=== PATIENT | female | born 1970 | race African-American/Black ===

== ENCOUNTER 2018-07-20 19:41 | Emergency (ER) | payer SELFPAY ==
[~2018-07-20] VITALS: Ht 172.7 cm; Wt 90.7 kg
[2018-07-20] MEDS ORDERED: UNABLE MC (20:45)
[2018-07-20] MEDS ORDERED: LABETALOL 20 MG/4 ML DISP.SYRIN. IVP ONE (21:00)
[2018-07-20 21:14] LABS: BASO # 0.1 x10^3/uL (0.0-0.2); BASO % 1 % (0-3); EOS # 0.3 x10^3/uL (0.0-0.7); EOS % 5 % (0-3); HEMATOCRIT 40.5 % (36.0-47.0); LYMPH # 1.4 x10^3/uL (1.0-4.8); LYMPH % 22 % (24-48); MEAN CORPUSCULAR HEMOGLOBIN 34 pg (25-35); MEAN CORPUSCULAR HGB CONC 34 g/dL (31-37); MEAN CORPUSCULAR VOLUME 100 fL (79-100); MONO # 0.6 x10^3/uL (0.0-1.1); MONO % 9 % (0-9); NEUT # 3.9 x10^3uL (1.8-7.7); NEUT % 63 % (31-73); PLATELET COUNT 367 x10^3/uL (140-400); RED BLOOD COUNT 4.07 x10^6/uL (3.50-5.40); RED CELL DISTRIBUTION WIDTH 14.1 % (11.5-14.5); WHITE BLOOD COUNT 6.2 x10^3/uL (4.0-11.0)
--- NOTE | 2018-07-20 21:23 | PHYS DOC ---
Past Medical History Past Medical History: A-Fib, Hypertension, Other Additional Past Medical Histor: back pain Past Surgical History: Other Additional Past Surgical Histo: unable to recall Alcohol Use: None Drug Use: None Adult General Chief Complaint Chief Complaint: TOE PROBLEM HPI HPI Patient is a 47 year old female with a history of high blood pressure presents to the ED complaining of rash to bilateral feet 1 week. 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 States she has to wear her shoes a lot and her feet sweat. Patient has tried [id number] creams without any improvement. Patient's blood pressure is also noted to be elevated in the ED. Patient has not been taking her blood pressure medication for the last couple of months. States she lost her insurance and has not filled her medications due to no insurance. Denies headache, vision changes, chest pain, shortness of breath, nausea/vomiting, dizziness, weakness, paresthesias, neck pain, nausea/vomiting or fever. Review of Systems Review of Systems Constitutional: Denies fever or chills [] Eyes: Denies change in visual acuity, redness, or eye pain [] HENT: Denies nasal congestion or sore throat [] Respiratory: Denies cough or shortness of breath [] Cardiovascular: No additional information not addressed in HPI [] GI: Denies abdominal pain, nausea, vomiting, bloody stools or diarrhea [] : Denies dysuria or hematuria [] Musculoskeletal: Denies back pain or joint pain [] Integument: Complains of rash to feet. Denies skin lesions [] Neurologic: Denies headache, focal weakness or sensory changes [] All other systems were reviewed and found to be within normal limits, except as documented in this note. Current Medications Current Medications Current Medications Medications (Trade) Dose Ordered Sig/Erinn Start Time Stop Time Status Last Admin Dose Admin Labetalol HCl (Normodyne Iv Push) 20 mg 1X ONCE 07/20/18 21:00 07/20/18 21:01 DC 07/20/18 21:35 20 MG Allergies Allergies Allergies Coded Allergies Type Severity Reaction Last Updated Verified No Known Drug Allergies 07/20/18 No Physical Exam Physical Exam Constitutional: Well developed, well nourished, no acute distress, non-toxic appearance. [] HENT: Normocephalic, atraumatic Eyes: PERRLA, EOMI, conjunctiva normal, no discharge. [] Neck: Normal range of motion, no tenderness, supple, no stridor. [] Cardiovascular:Heart rate regular rhythm, no murmur [] Lungs & Thorax: Bilateral breath sounds clear to auscultation [] Abdomen: Bowel sounds normal, soft, no tenderness, no masses, no pulsatile masses. [] Skin: Warm, dry. Erythematous, scaly rash to bilateral soles of feet consistent with tinea pedis. Back: No tenderness, no CVA tenderness. [] Extremities: No tenderness, no cyanosis, no clubbing, ROM intact, no edema. [] Neurologic: Alert and oriented X 3, normal motor function, normal sensory function, no focal deficits noted. [] Psychologic: Affect normal, judgement normal, mood normal. [] Current Patient Data Vital Signs Vital Signs Date Time Temp Pulse Resp B/P (MAP) Pulse Ox O2 Delivery O2 Flow Rate FiO2 07/20/18 23:00 79 18 177/97 (123) 99 Room Air 07/20/18 20:40 98.7 98.7 Lab Values Laboratory Tests Test 07/20/18 21:05 07/20/18 21:23 White Blood Count 6.2 x10^3/uL (4.0-11.0) Red Blood Count 4.07 x10^6/uL (3.50-5.40) Hemoglobin 14.0 g/dL (12.0-15.5) Hematocrit 40.5 % (36.0-47.0) Mean Corpuscular Volume 100 fL (79-100) Mean Corpuscular Hemoglobin 34 pg (25-35) Mean Corpuscular Hemoglobin Concent 34 g/dL (31-37) Red Cell Distribution Width 14.1 % (11.5-14.5) Platelet Count 367 x10^3/uL (140-400) Neutrophils (%) (Auto) 63 % (31-73) Lymphocytes (%) (Auto) 22 % (24-48) L Monocytes (%) (Auto) 9 % (0-9) Eosinophils (%) (Auto) 5 % (0-3) H Basophils (%) (Auto) 1 % (0-3) Neutrophils # (Auto) 3.9 x10^3uL (1.8-7.7) Lymphocytes # (Auto) 1.4 x10^3/uL (1.0-4.8) Monocytes # (Auto) 0.6 x10^3/uL (0.0-1.1) Eosinophils # (Auto) 0.3 x10^3/uL (0.0-0.7) Basophils # (Auto) 0.1 x10^3/uL (0.0-0.2) POC Hemoglobin 15.0 g/dL (12-15) POC Hematocrit 44 % (36-40) H POC Sodium 137 mmol/L (135-145) POC Potassium 3.9 mmol/L (3.5-5.0) POC Chloride 98 mmol/L (98-110) POC Total CO2 28 mmol/L (23-32) Anion Gap 16 mmol/L (6-14) H POC Blood Urea Nitrogen 15 mg/dL (8-26) POC Creatinine 0.8 mg/dL (0.5-1.4) Glucose Level 97 mg/dL (70-99) POC Ionized Calcium ([place]) 1.20 mmol/L (1.13-1.32) Laboratory Tests 07/20/18 21:05 Laboratory Tests 07/20/18 21:23 EKG EKG [] Radiology/Procedures Radiology/Procedures [] Course & Med Decision Making Course & Med Decision Making Pertinent Labs and Imaging studies reviewed. (See chart for details) Will treat for tinea pedis outpatient. Patient also provided otc options ( desenex). []Discussed lab findings with patient. Creatinine WNL. Patient's blood pressure improved in the ED to 171/95 with medication. Patient continues to be asymptomatic. States she feels well. Requesting prescription for her at home medications (carvedilol and xarelto;given starter pack). Patient has been given contact information for free clinic list. States she is going to follow-up tomorrow. States she has a few resource options. Discussed the importance of follow-up and risks if she does not including , disability and complications. Discussed reasons to return to the ED. Patient understands and agrees with plan. Dragon Disclaimer Dragon Disclaimer This electronic medical record was generated, in whole or in part, using a voice recognition dictation system. Departure Departure Impression: Primary Impression: Athletes foot Additional Impression: Asymptomatic hypertension Disposition: HOME, SELF-CARE Condition: IMPROVED Referrals: NO PCP (PCP) QUE BROOKE MD Patient Instructions: Athlete's Foot, Hypertension Scripts Ketoconazole (KETOCONAZOLE) 15 Gm Cream..g. 1 HUGO TP BID for 14 Days, #60 GM 0 Refills Prov: CORINNA CIFUENTES 07/20/18 Rivaroxaban (Xarelto) 1 Each Tab.ds.pk 1 EACH PO 1X, #1 PKG Xarelto starter pack Prov: CORINNA CIFUENTES 07/20/18 Carvedilol (CARVEDILOL) 25 Mg Tablet 1 TAB PO BID for 14 Days, #28 TAB 0 Refills Prov: CORINNA CIFUENETS 07/20/18 Problem Qualifiers CORINNA CIFUENTES Jul 20, 2018 21:23
[2018-07-20 21:31] LABS: CREATININE ISTAT 0.8 mg/dL (0.5-1.4); ION CA ISTAT 1.2 mmol/L (1.13-1.32); POTASSIUM ISTAT 3.9 mmol/L (3.5-5.0)
[2018-07-20] MEDS ORDERED: CARV25TA2 PO (22:13)
[2018-07-20] MEDS ORDERED: RIVA1TAB PO (22:13)
[2018-07-20] MEDS ORDERED: KETO15CR2 TP (22:13)
[2018-07-20 23:00] VITALS: BP 177/97
== END 2018-07-20 23:12 | disposition home or self-care (01) ==
LOC: ER 19:41
DX: I10 Essential (primary) hypertension (principal); B35.3 Tinea pedis; R21 Rash and other nonspecific skin eruption; I48.91 Unspecified atrial fibrillation
CPT/HCPCS: 36415; 80047; 85025; 96374; 99284; J3490

== ENCOUNTER 2022-01-31 10:26 | Inpatient (IN) | payer OTHER ==
[~2022-01-31] VITALS: Ht 172.7 cm; Wt 84.5 kg
[~2022-01-31 10:26] MED LIST: CARV25TA2 PO; KETO15CR2 TP; RIVA1TAB PO; UNABLE MC
--- NOTE | 2022-01-31 11:03 | PHYS DOC ---
Past Medical History Past Medical History: A-Fib, Hypertension, Other Additional Past Medical Histor: back pain,RVR,CKD STAGE III Past Surgical History: Additional Past Surgical Histo: unable to recall Smoking Status: Never Smoker Alcohol Use: None Drug Use: None Adult General Chief Complaint Chief Complaint: Palpitations HPI HPI Patient is a 51 year old female presenting to the emergency department for evaluation of fatigue chest tightness palpitations and generally not feeling well since 6:00 this morning. Patient says that the chest tightness started when she got to work this morning at 9:00 and she did not feel that she was particular exerting herself but she felt short of breath and nauseated with it but had no vomiting or diaphoresis. Patient says she has a history of CHF and renal insufficiency in addition to congestive heart failure and follows with cardiology at [facility] but she says she felt too poorly to go to . She says that she also has intermittent atrial fibrillation and she feels like she is in it at this time. She takes Eliquis and has been compliant but says that she has not taken her Coreg thus far this morning as her blood pressure was too low to take it. Patient is in no acute distress but is tachycardic and hypertensive. Review of Systems Review of Systems Constitutional: Denies fever or chills [] Eyes: Denies change in visual acuity, redness, or eye pain [] HENT: Denies nasal congestion or sore throat [] Respiratory: Denies cough. + shortness of breath [] Cardiovascular: + CP GI: Denies abdominal pain. + nausea. No vomiting, bloody stools or diarrhea [] : Denies dysuria or hematuria [] Musculoskeletal: Denies back pain or joint pain [] Integument: Denies rash or skin lesions [] Neurologic: Denies headache, focal weakness or sensory changes [] All other systems were reviewed and found to be within normal limits, except as documented in this note. Current Medications Current Medications Current Medications Medications (Trade) Dose Ordered Sig/Erinn Start Time Stop Time Status Last Admin Dose Admin Aspirin (Aspirin Chewable) 324 mg 1X ONCE 01/31/22 11:15 01/31/22 11:16 DC 01/31/22 11:10 324 MG Carvedilol (Coreg) 25 mg ONCE ONCE 01/31/22 12:30 01/31/22 12:35 DC 01/31/22 13:00 25 MG Diltiazem HCl 125 mg/Sodium Chloride 125 ml @ 5 mls/hr CONT PRN 01/31/22 12:30 01/31/22 12:33 DC Metoprolol Tartrate (Lopressor Vial) 5 mg 1X ONCE 01/31/22 12:30 01/31/22 12:35 DC 01/31/22 12:58 5 MG Ondansetron HCl (Zofran) 4 mg 1X ONCE 01/31/22 11:15 01/31/22 11:16 DC 01/31/22 11:10 4 MG Allergies Allergies Allergies Coded Allergies Type Severity Reaction Last Updated Verified No Known Drug Allergies 07/20/18 No Physical Exam Physical Exam Constitutional: Well developed, well nourished, no acute distress, non-toxic appearance. [] HENT: Normocephalic, atraumatic, bilateral external ears normal, oropharynx moist, no oral exudates, nose normal. [] Eyes: PERRLA, EOMI, conjunctiva normal, no discharge. [] Neck: Normal range of motion, no tenderness, supple, no stridor. [] Cardiovascular:Heart rate tachycardic with irregular rhythm, no murmur [] Lungs & Thorax: Bilateral breath sounds clear to auscultation [] Abdomen: Bowel sounds normal, soft, no tenderness, no masses, no pulsatile masses. [] Skin: Warm, dry, no erythema, no rash. [] Back: No tenderness, no CVA tenderness. [] Extremities: No tenderness, no cyanosis, no clubbing, ROM intact, no edema. [] Neurologic: Alert and oriented X 3, normal motor function, normal sensory function, no focal deficits noted. [] Current Patient Data Vital Signs Vital Signs Date Time Temp Pulse Resp B/P (MAP) Pulse Ox O2 Delivery O2 Flow Rate FiO2 01/31/22 13:00 138 104/66 01/31/22 10:28 97.8 22 100 Room Air 97.8 Lab Values Laboratory Tests Test 01/31/22 10:40 01/31/22 11:05 01/31/22 12:36 White Blood Count 8.0 x10^3/uL (4.0-11.0) Red Blood Count 3.59 x10^6/uL (3.50-5.40) Hemoglobin 12.0 g/dL (12.0-15.5) Hematocrit 35.8 % (36.0-47.0) L Mean Corpuscular Volume 100 fL (79-100) Mean Corpuscular Hemoglobin 33 pg (25-35) Mean Corpuscular Hemoglobin Concent 33 g/dL (31-37) Red Cell Distribution Width 13.9 % (11.5-14.5) Platelet Count 316 x10^3/uL (140-400) Neutrophils (%) (Auto) 67 % (31-73) Lymphocytes (%) (Auto) 25 % (24-48) Monocytes (%) (Auto) 6 % (0-9) Eosinophils (%) (Auto) 2 % (0-3) Basophils (%) (Auto) 1 % (0-3) Neutrophils # (Auto) 5.3 x10^3/uL (1.8-7.7) Lymphocytes # (Auto) 2.0 x10^3/uL (1.0-4.8) Monocytes # (Auto) 0.5 x10^3/uL (0.0-1.1) Eosinophils # (Auto) 0.1 x10^3/uL (0.0-0.7) Basophils # (Auto) 0.1 x10^3/uL (0.0-0.2) Sodium Level 143 mmol/L (136-145) Potassium Level 3.5 mmol/L (3.5-5.1) Chloride Level 106 mmol/L (98-107) Carbon Dioxide Level 25 mmol/L (21-32) Anion Gap 12 (6-14) Blood Urea Nitrogen 34 mg/dL (7-20) H Creatinine 2.1 mg/dL (0.6-1.0) H Estimated GFR (Cockcroft-Gault) 29.9 BUN/Creatinine Ratio 16 (6-20) Glucose Level 112 mg/dL (70-99) H Calcium Level 9.5 mg/dL (8.5-10.1) Total Bilirubin 0.4 mg/dL (0.2-1.0) Aspartate Amino Transferase (AST) 20 U/L (15-37) Alanine Aminotransferase (ALT) 25 U/L (14-59) Alkaline Phosphatase 118 U/L (46-116) H Troponin I High Sensitivity 75 ng/L (4-50) H AB-Gku-D-Type Natriuretic Peptide 657 pg/mL (0-124) H Total Protein 8.0 g/dL (6.4-8.2) Albumin 3.5 g/dL (3.4-5.0) Albumin/Globulin Ratio 0.8 (1.0-1.7) L Thyroid Stimulating Hormone (TSH) 0.457 uIU/mL (0.358-3.74) Ethyl Alcohol Level < 10 mg/dL (0-10) Prothrombin Time 15.0 SEC (11.7-14.0) H Prothrombin Time INR 1.2 (0.8-1.1) H Activated Partial Thromboplast Time 30 SEC (24-38) Urine Collection Type Unknown Urine Color (Auto) Colorless Urine Turbidity Clear Urine pH (Auto) 5.0 (<5.0-8.0) Urine Specific [place] 1.010 (1.000-1.030) Urine Protein (Auto) Negative mg/dL (Negative) Urine Glucose (Auto)(UA) Negative mg/dL (Negative) Urine Ketones (Auto) Negative mg/dL (Negative) Urine Blood (Auto) Negative (Negative) Urine Nitrite Negative (Negative) Urine Bilirubin (Auto) Negative (Negative) Urine Urobilinogen (Auto) Normal mg/dL (Normal) Urine Leukocyte Esterase (Auto) Negative (Negative) Urine RBC 0 /HPF (0-2) Urine WBC 1-4 /HPF (0-4) Urine Squamous Epithelial Cells Mod /LPF Urine Bacteria 0 /HPF (0-FEW) Urine Opiates Screen Neg (NEG) Urine Methadone Screen Neg (NEG) Urine Barbiturates Neg (NEG) Urine Phencyclidine Screen Pos (NEG) Urine Amphetamine/Methamphetamine Neg (NEG) Urine Benzodiazepines Screen Neg (NEG) Urine Cocaine Screen Neg (NEG) Urine Cannabinoids Screen Pos (NEG) Urine Ethyl Alcohol Neg (NEG) Laboratory Tests 01/31/22 10:40 Laboratory Tests 01/31/22 10:40 EKG EKG Atrial fibrillation at 129 bpm with normal axis no ST elevation or depression and normal T waves with normal intervals. Radiology/Procedures Radiology/Procedures [] Course & Med Decision Making Course & Med Decision Making Patient has atrial fibrillation with RVR and initially attempted a 5 mg IV bolus of metoprolol however this did not improve her heart rate and I recommended doing a Cardizem drip and she refused stating that she wants to go home. She was willing to let me attempt another IV bolus of metoprolol and for her to take her home Coreg dose of 25 mg. Unfortunately this did not help her heart rate either has a continue to be greater than 130. I told patient that she needs to be admitted to hospital for further drip on either Cardizem or amiodarone or possibly a digoxin bolus. She refused stating that she wanted to go home and that she would go to if she was not feeling better by this evening. She was willing to sign out AMA but then when the nurse went in to have her sign AMA paperwork she changed her mind and said that she wants to stay in the hospital. Patient will be admitted with cardiology consultation pending. Critical care time of 35 minutes Nila Disclaimer Dragon Disclaimer This electronic medical record was generated, in whole or in part, using a voice recognition dictation system. Departure Departure Impression: Primary Impression: Atrial fibrillation with RVR Additional Impressions: Chest pain Phencyclidine (PCP) use disorder, mild, abuse Marijuana use Renal insufficiency Disposition: ADMITTED INPATIENT Admitting Physician: MATEUSZ (Keron) Condition: GUARDED Referrals: NO PCP (PCP) Problem Qualifiers GENA VAUGHN DO Jan 31, 2022 11:03
[2022-01-31 11:04] LABS: BASO # 0.1 x10^3/uL (0.0-0.2); BASO % 1 % (0-3); EOS # 0.1 x10^3/uL (0.0-0.7); EOS % 2 % (0-3); HEMATOCRIT 35.8 % (36.0-47.0); LYMPH % 25 % (24-48); MEAN CORPUSCULAR HEMOGLOBIN 33 pg (25-35); MEAN CORPUSCULAR HGB CONC 33 g/dL (31-37); MEAN CORPUSCULAR VOLUME 100 fL (79-100); MONO # 0.5 x10^3/uL (0.0-1.1); MONO % 6 % (0-9); NEUT # 5.3 x10^3/uL (1.8-7.7); NEUT % 67 % (31-73); PLATELET COUNT 316 x10^3/uL (140-400); RED BLOOD COUNT 3.59 x10^6/uL (3.50-5.40); RED CELL DISTRIBUTION WIDTH 13.9 % (11.5-14.5)
[2022-01-31 11:14] LABS: CALCIUM 9.5 mg/dL (8.5-10.1); CREATININE 2.1 mg/dL (0.6-1.0); GFR 29.9; POTASSIUM 3.5 mmol/L (3.5-5.1)
[2022-01-31] MEDS ORDERED: ASPIRIN CHEWABLE 81 MG TABLET. PO ONE (11:15)
[2022-01-31] MEDS ORDERED: ONDANSETRON PF 4 MG/2 ML VIAL. IVP ONE (11:15)
[2022-01-31] MEDS ORDERED: METOPROLOL IV PUSH 5 MG/5 ML VIAL. IVP ONE ×2 (11:15→12:30)
[2022-01-31 11:21] LABS: ALBUMIN 3.5 g/dL (3.4-5.0); ALBUMIN/GLOBULIN RATIO 0.8 (1.0-1.7); TOTAL BILIRUBIN 0.4 mg/dL (0.2-1.0)
--- NOTE | 2022-01-31 11:47 | RAD ---
Single AP view of the chest. Comparison: None. Indication: Chest pain and shortness of air Findings: The heart is enlarged. There is no pneumothorax or effusion. No air space or interstitial disease. Impression: 1. No acute cardiopulmonary process. Electronically signed by: Mark Morgan MD (01/31/2022 11:44 AM) [id number]
[2022-01-31] MEDS ORDERED: CARVEDILOL 12.5 MG TABLET. PO ONE (12:30)
[2022-01-31 12:59] LABS: BARBITURATES NEG (NEG); BENZODIAZEPINES NEG (NEG); CANNABINOIDS POS (NEG); COCAINE NEG (NEG); METHADONE NEG (NEG); OPIATES NEG (NEG); PHENCYCLIDINE POS (NEG)
[2022-01-31 13:00] LABS: AMPHETAMINE/METHAMPHETAMINE NEG (NEG)
[2022-01-31 13:11] LABS: BACTERIA,URINE 0 /HPF (0-FEW); RBC,URINE 0 /HPF (0-2)
--- NOTE | 2022-01-31 14:02 | EKG ---
[facility] [address] [place] [address] Test Date: 2022-01-31 Test Time: 10:37:05 Pat Name: YA LAO Department: Room: Gender: F [employer]: : 1970 Requested By: GENA VAUGHN Order Number: [id number] Reading MD: Ky Cottrell Measurements Intervals [place] Rate: 129 P: MN: QRS: 17 QRSD: 86 T: 59 QT: 300 QTc: 441 Interpretive Statements ATRIAL FIBRILLATION WITH RVR QRS(T) CONTOUR ABNORMALITY CONSISTENT WITH ANTEROSEPTAL INFARCT Electronically Signed On 02-08-2022 14:22:41 CDT by Ky Cottrell
[2022-01-31] MEDS ORDERED: DIGOXIN IV 500 MCG/2 ML AMPUL. IV ONE (14:30)
[2022-01-31] MEDS ORDERED: ONDANSETRON PF 4 MG/2 ML VIAL. IVP PRN (14:30)
[2022-01-31] MEDS ORDERED: oxyCODONE/APAP 5/325 1 TAB TABLET PO ONE (15:00)
--- NOTE | 2022-01-31 15:53 | PDOC2 ---
ROQUE KRUGER CELL TENDER HELPER 01/31/22 1553: CARDIAC CONSULT DATE OF CONSULT Date of Consult DATE: 01/31/22 TIME: 15:33 REASON FOR CONSULT Reason for Consult: AFIB RVR REFERRING PHYSICIAN Referring Physician: Tyler SOURCE Source: Chart review, Patient HISTORY OF PRESENT ILLNESS HISTORY OF PRESENT ILLNESS This is a 51 yo female admitted for complains of chest pain and palpitations. This started this morning feeling fatigue and chest tightness. Also with some SOA and was going to work today but was having symptoms also with nausea. Also had a couple of diarrhea but no respiratory viral symptoms. Upon admission she was noted with AFIB RVR. She was given digoxin and metoprolol and remains in RVR. She sees Dr. Lovelace at [facility] cardiology. She was told of referral to EP but declined at that time as she wants to get finish with the amyloid workup. She also was just recently tested for RENETTA and noted withmild RENETTA but no formal recommendation yet for CPAP device. She takes her eliquis regularly for at least 3 yrs now and was talked about with multaq use but could not afford it. She takes coreg but no antiarrhythmics. PAST MEDICAL HISTORY Cardiovascular: AFIB (paroxysmal by hx), CHF, HTN, Other (LVH) Pulmonary: Other (RENETTA) CENTRAL NERVOUS SYSTEM: Other (No pertinent history) GI: No pertinent hx Heme/Onc: Anemia NOS Psych: Anxiety, Depression, Other (suicide attempt) Musculoskeletal: low back pain, Osteoarthritis Rheumatologic: No pertinent hx Infectious disease: No pertinent hx ENT: Allergic Rhinitis Renal/: Chronic renal insuff (CKD3) Endocrine: No pertinent hx Dermatology: No pertinent hx PAST SURGICAL HISTORY Past Surgical History: FAMILY HISTORY Family History: Heart Disease SOCIAL HISTORY Smoke: <1 pack per day ALCOHOL: none Lives: with Family CURRENT MEDICATIONS CURRENT MEDICATIONS Current Medications Medications (Trade) Dose Ordered Sig/Erinn Route PRN Reason Start Time Stop Time Status Last Admin Dose Admin Ondansetron HCl (Zofran) 4 mg 1X ONCE IVP 01/31/22 11:15 01/31/22 11:16 DC 01/31/22 11:10 Aspirin (Aspirin Chewable) 324 mg 1X ONCE PO 01/31/22 11:15 01/31/22 11:16 DC 01/31/22 11:10 Metoprolol Tartrate (Lopressor Vial) 5 mg 1X ONCE IVP 01/31/22 11:15 01/31/22 11:16 DC 01/31/22 11:09 Metoprolol Tartrate (Lopressor Vial) 5 mg 1X ONCE IVP 01/31/22 12:30 01/31/22 12:35 DC 01/31/22 12:58 Carvedilol (Coreg) 25 mg ONCE ONCE PO 01/31/22 12:30 01/31/22 12:35 DC 01/31/22 13:00 Digoxin (Lanoxin) 500 mcg 1X ONCE IV 01/31/22 14:30 01/31/22 14:33 DC 01/31/22 14:46 ALLERGIES ALLERGIES: Coded Allergies: No Known Drug Allergies (Unverified , 07/20/18) ROS Review of System 14 point ROS evaluated with pertinent positives noted per HPI PHYSICAL EXAM General: Alert, Oriented X3, Cooperative, No acute distress HEENT: Atraumatic, Mucous membr. moist/pink Lungs: Clear to auscultation, Normal air movement Heart: Other (AFIB RVR; 2/6 systolic murmur to LLS border) Abdomen: Soft, No tenderness Extremities: No cyanosis, No edema, Other (bruise to left lateral calf) Skin: No breakdown, No significant lesion Neuro: Normal speech, Sensation intact Psych/Mental Status: Mental status NL, Mood NL MUSCULOSKELETAL: Osteoarthritic changes both hands VITALS/I&O VITALS/I&O: Vital Signs Date Time Temp Pulse Resp B/P (MAP) Pulse Ox O2 Delivery O2 Flow Rate FiO2 01/31/22 14:46 141 101/73 01/31/22 10:28 97.8 22 100 Room Air 97.8 LABS Lab: Laboratory Tests Test 01/31/22 10:40 01/31/22 11:05 01/31/22 12:36 White Blood Count 8.0 x10^3/uL (4.0-11.0) Red Blood Count 3.59 x10^6/uL (3.50-5.40) Hemoglobin 12.0 g/dL (12.0-15.5) Hematocrit 35.8 % (36.0-47.0) L Mean Corpuscular Volume 100 fL (79-100) Mean Corpuscular Hemoglobin 33 pg (25-35) Mean Corpuscular Hemoglobin Concent 33 g/dL (31-37) Red Cell Distribution Width 13.9 % (11.5-14.5) Platelet Count 316 x10^3/uL (140-400) Neutrophils (%) (Auto) 67 % (31-73) Lymphocytes (%) (Auto) 25 % (24-48) Monocytes (%) (Auto) 6 % (0-9) Eosinophils (%) (Auto) 2 % (0-3) Basophils (%) (Auto) 1 % (0-3) Neutrophils # (Auto) 5.3 x10^3/uL (1.8-7.7) Lymphocytes # (Auto) 2.0 x10^3/uL (1.0-4.8) Monocytes # (Auto) 0.5 x10^3/uL (0.0-1.1) Eosinophils # (Auto) 0.1 x10^3/uL (0.0-0.7) Basophils # (Auto) 0.1 x10^3/uL (0.0-0.2) Sodium Level 143 mmol/L (136-145) Potassium Level 3.5 mmol/L (3.5-5.1) Chloride Level 106 mmol/L (98-107) Carbon Dioxide Level 25 mmol/L (21-32) Anion Gap 12 (6-14) Blood Urea Nitrogen 34 mg/dL (7-20) H Creatinine 2.1 mg/dL (0.6-1.0) H Estimated GFR (Cockcroft-Gault) 29.9 BUN/Creatinine Ratio 16 (6-20) Glucose Level 112 mg/dL (70-99) H Calcium Level 9.5 mg/dL (8.5-10.1) Total Bilirubin 0.4 mg/dL (0.2-1.0) Aspartate Amino Transferase (AST) 20 U/L (15-37) Alanine Aminotransferase (ALT) 25 U/L (14-59) Alkaline Phosphatase 118 U/L (46-116) H Troponin I High Sensitivity 75 ng/L (4-50) H QA-Csf-Q-Type Natriuretic Peptide 657 pg/mL (0-124) H Total Protein 8.0 g/dL (6.4-8.2) Albumin 3.5 g/dL (3.4-5.0) Albumin/Globulin Ratio 0.8 (1.0-1.7) L Thyroid Stimulating Hormone (TSH) 0.457 uIU/mL (0.358-3.74) Ethyl Alcohol Level < 10 mg/dL (0-10) Prothrombin Time 15.0 SEC (11.7-14.0) H Prothrombin Time INR 1.2 (0.8-1.1) H Activated Partial Thromboplast Time 30 SEC (24-38) Urine Collection Type Unknown Urine Color (Auto) Colorless Urine Turbidity Clear Urine pH (Auto) 5.0 (<5.0-8.0) Urine Specific Eddy 1.010 (1.000-1.030) Urine Protein (Auto) Negative mg/dL (Negative) Urine Glucose (Auto)(UA) Negative mg/dL (Negative) Urine Ketones (Auto) Negative mg/dL (Negative) Urine Blood (Auto) Negative (Negative) Urine Nitrite Negative (Negative) Urine Bilirubin (Auto) Negative (Negative) Urine Urobilinogen (Auto) Normal mg/dL (Normal) Urine Leukocyte Esterase (Auto) Negative (Negative) Urine RBC 0 /HPF (0-2) Urine WBC 1-4 /HPF (0-4) Urine Squamous Epithelial Cells Mod /LPF Urine Bacteria 0 /HPF (0-FEW) Urine Opiates Screen Neg (NEG) Urine Methadone Screen Neg (NEG) Urine Barbiturates Neg (NEG) Urine Phencyclidine Screen Pos (NEG) Urine Amphetamine/Methamphetamine Neg (NEG) Urine Benzodiazepines Screen Neg (NEG) Urine Cocaine Screen Neg (NEG) Urine Cannabinoids Screen Pos (NEG) Urine Ethyl Alcohol Neg (NEG) Laboratory Tests 01/31/22 10:40 Laboratory Tests 01/31/22 10:40 ECHOCARDIOGRAM ECHOCARDIOGRAM 11/18/2020 ECHO D: [facility] Small left ventricular cavity. Severe concentric hypertrophy. Normal systolic function. Estimated EF ~60%. Abnormal diastolic function. Normal right ventricular size and systolic function. Mild biatrial dilatation. The aortic valve is sclerotic. No stenosis. No regurgitation. Mild to moderate tricuspid valve regurgitation. No pericardial effusion. Estimated pulmonary artery systolic pressure 33 mmHg. Estimated right atrial pressure ~8 mmHg. 10/25/2021 DEON: * The left ventricular cavity is small with severe concentric hypertrophy. The left ventricular systolic function is normal with estimated ejection fraction of 65%. * Normal right ventricular size and systolic function. * Mild biatrial dilatation. * No evidence of thrombus in the left atria or left atrial appendage. * No significant valvular normalities. * Minimal atherosclerosis in the descending aorta * No pericardial effusion. STRESS TEST STRESS TEST FINDINGS: Pharmacological Stress Electrocardiogram:The patient's resting heart rate was 71 bpm and the resting blood pressure was 168/90. The patients peak stress heart rate was 97 bpm and the peak stress blood pressure was 150/88. The patient experienced shortness of breath. The patient experienced no chest pain. The resting ECG shows Normal sinus rhythm. Following Regadenoson infusion there are no new diagnostic ECG changes and there is no ectopy. Conclusion: Pharmacologic stress ECG is negative for ischemia. Eeueaslcx-ej-Dhoulmfjog Count Ratio: 0.27 (normal = or < 0.52). 07/03/2017 [facility] Scintigraphic Findings: Summed Stress Score: 0 , Summed Rest Score: 0 Tomographic: Tomographic images were reconstructed in three orthogonal views. There is normal homogenous uptake of thallium in all myocardial segments. There are no perfusion defects. All myocardial segments appear viable. Polar coordinate map identifies no perfusion abnormalities. Regional Wall Thickening and Motion Post Stress: There is normal left ventricular wall motion and thickening of all myocardial segments. Resting Left Ventricular Ejection Fraction = 50 % (at reinjection). LV ejection fraction immediate post stress = 62%. The computer derived and systolic contours do not appear to be appropriately placed, and the ejection fraction visually would appear 65-70% range. Left Ventricular End Diastolic Volume: 73 mL. SUMMARY/OPINION: This study is normal with no evidence of significant myocardial ischemia. Left ventricular systolic function is normal to hyperdynamic. There are no high risk prognostic indicators present. The pharmacologic ECG portion of the study is negative for ischemia. ASSESSMENT/PLAN ASSESSMENT/PLAN 1. AFIB RVR 2. Chest pain: likely from RVR 3. Acute on chronic diastolic CHF with known severe LVH 4. HTN: labile episode 5. HLP 6. Tobaccoism 7. FIORELLA on CKD3: Baseline Cr at 1.6 prerenal diarrhea this am per PCP 8. Positive for PCP and marijuana 9. RENETTA: no device yet 10. Mild troponin elevation: suspect demand mediated due to RVR and FIORELLA Recommendations 1. RVR despite lopressor and digoxin. Will start on amiodarone per protocol. Continue eliquis for stroke prevention 2. Restart home coreg. Hold lisinopril. Consider cardizem if rate remains uncontrolled 3. Lifestyle modification 4. Outpt MPI 5. Follow up with [facility] cardiology CLAUDE GONZALEZ MD 01/31/228: CARDIAC CONSULT ASSESSMENT/PLAN ASSESSMENT/PLAN Patient seen and examined. Agree with ST[facility] DOWN SPECIALIST's assessment and plan AF with RVR despite lopressor and digoxin Agree with amiodarone gtt per protocol If she continues to have RVR, we will consider deon Cvn Acute on HF diastoic HF better compensated Slight trop elevation prob demand ischemia Thank you for your consultation ROQUE KRUGER CELL TENDER HELPER Jan 31, 2022 15:53 CLAUDE GONZALEZ MD Jan 31, 2022 22:35
[2022-01-31] MEDS ORDERED: LABETALOL 20 MG/4 ML DISP.SYRIN. IVP PRN (17:00)
[2022-01-31] MEDS: CARVEDILOL 12.5 MG TABLET. PO SCH (17:00)
[2022-01-31] MEDS ORDERED: AMIODARONE 150 MG in IV DEXTROSE 5% 100ML 100 ML IV ONE (17:00)
[2022-01-31] MEDS: AMIODARONE 450 MG in IV DEXTROSE 5% 250 ML IV PRN (17:02)
[2022-01-31 20:00] VITALS: BP 113/80
[2022-01-31] MEDS ORDERED: TERB250T72 PO (21:05)
[2022-01-31] MEDS ORDERED: TIZA-75 PO (21:08)
[2022-01-31] MEDS ORDERED: FURO40TA4 PO (21:20)
[2022-01-31] MEDS ORDERED: ALPR0.254 PO (21:20)
[2022-01-31] MEDS ORDERED: GABA300C18 PO (21:20)
[2022-01-31] MEDS ORDERED: FLUT15.812 NS (21:20)
[2022-01-31] MEDS ORDERED: SPIR25TA5 PO (21:20)
[2022-01-31] MEDS ORDERED: CLOT15CR23 TP (21:20)
[2022-01-31] MEDS ORDERED: ATOR20TA58 PO (21:20)
[2022-01-31] MEDS ORDERED: FOLI0.8T5 PO (21:20)
[2022-01-31] MEDS ORDERED: HYDR-2765 PO (21:20)
[2022-01-31] MEDS ORDERED: ESCITALOPRAM OX10 MG PO (21:20)
[2022-01-31] MEDS ORDERED: BUPR150T21 PO (21:20)
[2022-01-31] MEDS ORDERED: APIX5TAB PO (21:20)
[2022-01-31] MEDS ORDERED: CETI10TA16 PO (21:20)
[2022-01-31] MEDS ORDERED: TRAZ-118 PO (21:20)
[2022-01-31] MEDS ORDERED: MONT10TA49 PO (21:20)
[2022-01-31] MEDS ORDERED: CARV25TA PO (21:20)
[2022-01-31] MEDS ORDERED: LISI20TA18 PO (21:20)
[2022-01-31] MEDS ORDERED: ALPRAZolam 0.25 MG TABLET PO PRN (21:30)
[2022-01-31] MEDS ORDERED: FUROSEMIDE 40 MG TABLET. PO PRN (21:30)
[2022-01-31] MEDS ORDERED: ANTI-COAG MONITOR BY PHARMACY. MC PRN (21:45)
--- NOTE | 2022-01-31 21:45 | PDOC1 ---
History and Physical Date of Admission Date of Admission DATE: 01/31/22 TIME: 21:37 Source Source: Chart review History of Present Illness History of Present Illness Armida is a 51 year old female admit for AFIB RVR, she came to the ER for acute chest tightness, palpitations and marked weakness. Symptoms for a few hours, she normally goes to ,but couldnt make it there today. She had new shortness of breath and felt nauseated. Noted chronic problems of afib and CKD. follows with cardiology at [facility]. She takes Eliquis and has been compliant but is upset about a large bruise on her left lower leg. pt was in distress in the ER but reports feeling better, got a dose of ativan for anxiety and slept hard in the ER and has asked for PRN, normally takes xanax Past Medical History Cardiovascular: AFIB (paroxysmal by hx), CHF, HTN, Other (LVH) Pulmonary: Other ([place]) CENTRAL NERVOUS SYSTEM: Other (No pertinent history) GI: No pertinent hx Heme/Onc: Anemia NOS Psych: Anxiety, Depression, Other (suicide attempt) Musculoskeletal: low back pain, Osteoarthritis Rheumatologic: No pertinent hx Infectious disease: No pertinent hx ENT: Allergic Rhinitis Renal/: Chronic renal insuff (CKD3) Endocrine: No pertinent hx Dermatology: No pertinent hx Past Surgical History Past Surgical History: Family History Family History: Heart Disease Social History Smoke: <1 pack per day ALCOHOL: none Current Problem List Problem List Problems Medical Problems: (1) Atrial fibrillation with RVR Status: Acute (2) Chest pain Status: Acute (3) Marijuana use Status: Acute (4) Phencyclidine (PCP) use disorder, mild, abuse Status: Acute (5) Renal insufficiency Status: Acute Current Medications Current Medications Current Medications Ondansetron HCl (Zofran) 4 mg 1X ONCE IVP Last administered on 01/31/22at 11:10; Start 01/31/22 at 11:15; Stop 01/31/22 at 11:16; Status DC Aspirin (Aspirin Chewable) 324 mg 1X ONCE PO Last administered on 01/31/22at 11:10; Start 01/31/22 at 11:15; Stop 01/31/22 at 11:16; Status DC Metoprolol Tartrate (Lopressor Vial) 5 mg 1X ONCE IVP Last administered on 01/31/22at 11:09; Start 01/31/22 at 11:15; Stop 01/31/22 at 11:16; Status DC Diltiazem HCl 125 mg/Sodium Chloride 125 ml @ 5 mls/hr CONT PRN IV PER PROTOCOL; Start 01/31/22 at 12:30; Stop 01/31/22 at 12:33; Status DC Metoprolol Tartrate (Lopressor Vial) 5 mg 1X ONCE IVP Last administered on 01/31/22at 12:58; Start 01/31/22 at 12:30; Stop 01/31/22 at 12:35; Status DC Carvedilol (Coreg) 25 mg ONCE ONCE PO Last administered on 01/31/22at 13:00; Start 01/31/22 at 12:30; Stop 01/31/22 at 12:35; Status DC Digoxin (Lanoxin) 500 mcg 1X ONCE IV Last administered on 01/31/22at 14:46; Start 01/31/22 at 14:30; Stop 01/31/22 at 14:33; Status DC Ondansetron HCl (Zofran) 4 mg PRN Q8HRS PRN IVP NAUSEA/VOMITING; Start 01/31/22 at 14:30; Stop 02/01/22 at 14:29 Oxycodone/ Acetaminophen (Percocet 5/325) 2 tab 1X ONCE PO ; Start 01/31/22 at 15:00; Stop 01/31/22 at 15:01; Status DC Lorazepam (Ativan Inj) 0.5 mg 1X ONCE IVP Last administered on 01/31/22at 15:34; Start 01/31/22 at 15:00; Stop 01/31/22 at 15:01; Status DC Amiodarone HCl 150 mg/Dextrose 103 ml @ 600 mls/hr 1X ONCE IV Last administered on 01/31/22at 16:43; Start 01/31/22 at 17:00; Stop 01/31/22 at 17:10; Status DC Amiodarone HCl 450 mg/Dextrose 259 ml @ 0 mls/hr CONT PRN IV SEE I/O RECORD Last administered on 01/31/22at 17:02; Start 01/31/22 at 17:00; Stop 02/01/22 at 16:59 Carvedilol (Coreg) 25 mg BIDWMEALS PO ; Start 01/31/22 at 17:00 Apixaban (Eliquis) 5 mg BID PO ; Start 01/31/22 at 21:00 Atorvastatin Calcium (Lipitor) 40 mg DAILY PO ; Start 01/31/22 at 21:00 Labetalol HCl (Normodyne Iv Push) 20 mg PRN Q2HRS PRN IVP ELEVATED BP, SEE COMMENTS; Start 01/31/22 at 17:00 Lorazepam (Ativan Inj) 2 mg PRN Q4HRS PRN IVP ANXIETY / AGITATION; Start 01/31/22 at 21:15 Alprazolam (Xanax) 0.25 mg PRN Q6HRS PRN PO ANXIETY / AGITATION; Start 01/31/22 at 21:30 Apixaban (Eliquis) 5 mg BID PO ; Start 02/01/22 at 09:00; Status UNV Atorvastatin Calcium (Lipitor) 20 mg HS PO ; Start 02/01/22 at 21:00; Status UNV Bupropion HCl (Wellbutrin Xl) 150 mg BID PO ; Start 02/01/22 at 09:00 Cetirizine HCl (ZyrTEC) 10 mg DAILY PO ; Start 02/01/22 at 09:00 Clotrimazole (Lotrimin) 1 jane BID TP ; Start 02/01/22 at 09:00 Furosemide (Lasix) 40 mg PRN DAILY PRN PO swelling; Start 01/31/22 at 21:30 Gabapentin (Neurontin) 300 mg BID PO ; Start 02/01/22 at 09:00 Acetaminophen/ Hydrocodone Bitart (Lortab 7.5/325) 1 tab PRN Q12HRS PRN PO MODERATE PAIN 4-6; Start 01/31/22 at 21:30; Status UNV Lisinopril (Prinivil) 20 mg DAILY PO ; Start 02/01/22 at 09:00; Status UNV Montelukast Sodium (Singulair) 10 mg DAILY PO ; Start 02/01/22 at 09:00; Status UNV Spironolactone (Aldactone) 25 mg DAILY PO ; Start 02/01/22 at 09:00; Status UNV Terbinafine HCl (LamISIL) 250 mg DAILY PO ; Start 02/01/22 at 09:00; Status UNV Tizanidine HCl (Zanaflex) 4 mg BID PO ; Start 02/01/22 at 09:00; Status UNV Trazodone HCl (Desyrel) 50 mg DAILY PO ; Start 02/01/22 at 09:00; Status UNV Non-Formulary Medication (Carvedilol (Coreg)) 25 mg BIDWMEALS PO ; Start 02/01/22 at 08:00; Status UNV Non-Formulary Medication (Escitalopram Oxalate ) 1 tab DAILY PO ; Start 02/01/22 at 09:00; Status UNV Active Scripts Active Reported Singulair Tablet (Montelukast Sodium) 10 Mg Tablet 10 Mg PO DAILY Furosemide 40 Mg Tablet 40 Mg PO DAILY PRN Clotrimazole 15 Gm Cream..g. 1 Jane TP BID Cetirizine Hcl 10 Mg Tablet 1 Tab PO DAILY Escitalopram Oxalate 10 Mg Tablet 1 Tab PO DAILY Eliquis (Apixaban) 5 Mg Tablet 5 Mg PO BID Gabapentin (Gabapentin) 300 Mg Capsule 300 Mg PO TID Coreg (Carvedilol) 25 Mg Tablet 25 Mg PO BIDWMEALS Bupropion Xl (Bupropion Hcl) 150 Mg Tab.er.24h 1 Tab PO BID Atorvastatin Calcium 20 Mg Tablet 20 Mg PO HS Hydrocodone-Apap 7.5-325 (Hydrocodone Bit/Acetaminophen) 1 Tab Tablet 1 Tab PO Q12HR PRN Alprazolam 0.25 Mg Tablet 0.25 Mg PO PRN Q6HRS PRN Folic Acid 0.8 Mg Tablet 1 Mg PO DAILY Spironolactone 25 Mg Tablet 1 Tab PO DAILY Lisinopril 20 Mg Tablet 1 Tab PO DAILY Allergy Relief (Fluticasone Propionate) 15.8 Ml [place].susp 2 [place] NS BID PRN 30 Days Trazodone Hcl 50 Mg Tablet 50 Mg PO DAILY Tizanidine Hcl 4 Mg Tablet 4 Mg PO BID Terbinafine Hcl 250 Mg Tablet 250 Mg PO DAILY Unable To Obtain Meds From Prior To Admit (Info) Each 1 Each [facility] Allergies Allergies: Coded Allergies: No Known Drug Allergies (Unverified , 07/20/18) ROS General: YES: Appetite; No: Chills, Night Sweats, Fatigue, Malaise, Other PSYCHOLOGICAL ROS: YES: Anxiety, Irritablity, Sleep disturbances; No: Behavioral Disorder, Concentration difficultie, Decreased libido, Depre ssion, Hallucinations, Hostility, Memory difficulties, Mood Swings, Obsessive thoughts, Suicidal ideation, Other HEENT: No: Heacaches, Visual Changes, Hearing change, Nasal congestion, Nasal discharge, Oral lesions, Sinus pain, Sore Throat, Epistaxis, Sneezing, Snoring, Tinnitus, Vertigo, Vocal changes, Other Respiratory: YES: SOB with excertion, Tachypnea; No: Cough, Hemoptysis, Orthopnea, Pleuritic Pain, Shortness of breath, Sputum Changes, Stridor, Wheezing, Other Cardiovascular: yes Chest Pain, yes Palpitations; No Orthopnea, No Paroxysmal Noc. Dyspnea, No Edema, No Lt Headedness, No Other Gastrointestinal: Yes Nausea; No Vomiting, No Abdominal Pain, No Diarrhea, No Constipation, No Melena, No Hematochezia, No Other Genitourinary: No Dysuria, No Frequency, No Incontinence, No Hematuria, No Retention, No Discharge, No Urgency, No Pain, No Flank Pain, No Other, No , No , No , No , No , No , No Musculoskeletal: No Gait Disturbance, No Joint Pain, No Joint Stiffness, No Joint Swelling, No Muscle Pain, No Muscular Weakness, No Pain In:, No Swelling In:, No Other Neurological: No Behavorial Changes, No Bowel/Bladder ControlChng, No Confusion, No Dizziness, No Gait Disturbance, No Headaches, No Impaired Coord/balance, No Memory Loss, No Numbness/Tingling, No Seizures, No Speech Problems, No Tremors, No Visual Changes, No Weakness, No Other Skin: Yes Dry Skin; No Eczema, No Hair Changes, No Lumps, No Mole Changes, No Mottling, No Nail Changes, No Pruritus, No Rash, No Skin Lesion Changes, No Other, No Acne Physical Exam General: Alert, Oriented X3, mild distress HEENT: Atraumatic Heart: irregularly irregular (tachy) Rectal Exam: not examined Extremities: No cyanosis, No edema, Other (left upper calf bruise, ) Skin: No rashes, No significant lesion Neuro: Normal speech, Normal tone, Cranial nerves 3-12 NL Psych/Mental Status: Mental status NL Vitals Vitals Vital Signs Date Time Temp Pulse Resp B/P (MAP) Pulse Ox O2 Delivery O2 Flow Rate FiO2 01/31/22 19:43 95 123/82 (96) 96 Room Air 01/31/22 15:13 16 01/31/22 10:28 97.8 97.8 Labs Labs Laboratory Tests Test 01/31/22 10:40 01/31/22 11:05 01/31/22 12:36 01/31/22 15:32 White Blood Count 8.0 x10^3/uL (4.0-11.0) Red Blood Count 3.59 x10^6/uL (3.50-5.40) Hemoglobin 12.0 g/dL (12.0-15.5) Hematocrit 35.8 % (36.0-47.0) Mean Corpuscular Volume 100 fL (79-100) Mean Corpuscular Hemoglobin 33 pg (25-35) Mean Corpuscular Hemoglobin Concent 33 g/dL (31-37) Red Cell Distribution Width 13.9 % (11.5-14.5) Platelet Count 316 x10^3/uL (140-400) Neutrophils (%) (Auto) 67 % (31-73) Lymphocytes (%) (Auto) 25 % (24-48) Monocytes (%) (Auto) 6 % (0-9) Eosinophils (%) (Auto) 2 % (0-3) Basophils (%) (Auto) 1 % (0-3) Neutrophils # (Auto) 5.3 x10^3/uL (1.8-7.7) Lymphocytes # (Auto) 2.0 x10^3/uL (1.0-4.8) Monocytes # (Auto) 0.5 x10^3/uL (0.0-1.1) Eosinophils # (Auto) 0.1 x10^3/uL (0.0-0.7) Basophils # (Auto) 0.1 x10^3/uL (0.0-0.2) Sodium Level 143 mmol/L (136-145) Potassium Level 3.5 mmol/L (3.5-5.1) Chloride Level 106 mmol/L (98-107) Carbon Dioxide Level 25 mmol/L (21-32) Anion Gap 12 (6-14) Blood Urea Nitrogen 34 mg/dL (7-20) Creatinine 2.1 mg/dL (0.6-1.0) Estimated GFR (Cockcroft-Gault) 29.9 BUN/Creatinine Ratio 16 (6-20) Glucose Level 112 mg/dL (70-99) Calcium Level 9.5 mg/dL (8.5-10.1) Total Bilirubin 0.4 mg/dL (0.2-1.0) Aspartate Amino Transf (AST/SGOT) 20 U/L (15-37) Alanine Aminotransferase (ALT/SGPT) 25 U/L (14-59) Alkaline Phosphatase 118 U/L (46-116) Troponin I High Sensitivity 75 ng/L (4-50) 110 ng/L (4-50) CZ-Yiv-[id number]-Type Natriuretic Peptide 657 pg/mL (0-124) Total Protein 8.0 g/dL (6.4-8.2) Albumin 3.5 g/dL (3.4-5.0) Albumin/Globulin Ratio 0.8 (1.0-1.7) Thyroid Stimulating Hormone (TSH) 0.457 uIU/mL (0.358-3.74) Ethyl Alcohol Level < 10 mg/dL (0-10) Prothrombin Time 15.0 SEC (11.7-14.0) Prothromb Time International Ratio 1.2 (0.8-1.1) Activated Partial Thromboplast Time 30 SEC (24-38) Urine Collection Type Unknown Urine Color (Auto) Colorless Urine Turbidity Clear Urine pH (Auto) 5.0 (<5.0-8.0) Urine Specific [place] 1.010 (1.000-1.030) Urine Protein (Auto) Negative mg/dL (Negative) Urine Glucose (Auto)(UA) Negative mg/dL (Negative) Urine Ketones (Auto) Negative mg/dL (Negative) Urine Blood (Auto) Negative (Negative) Urine Nitrite Negative (Negative) Urine Bilirubin (Auto) Negative (Negative) Urine Urobilinogen (Auto) Normal mg/dL (Normal) Urine Leukocyte Esterase (Auto) Negative (Negative) Urine RBC 0 /HPF (0-2) Urine WBC 1-4 /HPF (0-4) Urine Squamous Epithelial Cells Mod /LPF Urine Bacteria 0 /HPF (0-FEW) Urine Opiates Screen Neg (NEG) Urine Methadone Screen Neg (NEG) Urine Barbiturates Neg (NEG) Urine Phencyclidine Screen Pos (NEG) Urine Amphetamine/Methamphetamine Neg (NEG) Urine Benzodiazepines Screen Neg (NEG) Urine Cocaine Screen Neg (NEG) Urine Cannabinoids Screen Pos (NEG) Urine Ethyl Alcohol Neg (NEG) Laboratory Tests Test 01/31/22 10:40 01/31/22 11:05 01/31/22 12:36 01/31/22 15:32 White Blood Count 8.0 x10^3/uL (4.0-11.0) Red Blood Count 3.59 x10^6/uL (3.50-5.40) Hemoglobin 12.0 g/dL (12.0-15.5) Hematocrit 35.8 % (36.0-47.0) Mean Corpuscular Volume 100 fL (79-100) Mean Corpuscular Hemoglobin 33 pg (25-35) Mean Corpuscular Hemoglobin Concent 33 g/dL (31-37) Red Cell Distribution Width 13.9 % (11.5-14.5) Platelet Count 316 x10^3/uL (140-400) Neutrophils (%) (Auto) 67 % (31-73) Lymphocytes (%) (Auto) 25 % (24-48) Monocytes (%) (Auto) 6 % (0-9) Eosinophils (%) (Auto) 2 % (0-3) Basophils (%) (Auto) 1 % (0-3) Neutrophils # (Auto) 5.3 x10^3/uL (1.8-7.7) Lymphocytes # (Auto) 2.0 x10^3/uL (1.0-4.8) Monocytes # (Auto) 0.5 x10^3/uL (0.0-1.1) Eosinophils # (Auto) 0.1 x10^3/uL (0.0-0.7) Basophils # (Auto) 0.1 x10^3/uL (0.0-0.2) Sodium Level 143 mmol/L (136-145) Potassium Level 3.5 mmol/L (3.5-5.1) Chloride Level 106 mmol/L (98-107) Carbon Dioxide Level 25 mmol/L (21-32) Anion Gap 12 (6-14) Blood Urea Nitrogen 34 mg/dL (7-20) Creatinine 2.1 mg/dL (0.6-1.0) Estimated GFR (Cockcroft-Gault) 29.9 BUN/Creatinine Ratio 16 (6-20) Glucose Level 112 mg/dL (70-99) Calcium Level 9.5 mg/dL (8.5-10.1) Total Bilirubin 0.4 mg/dL (0.2-1.0) Aspartate Amino Transf (AST/SGOT) 20 U/L (15-37) Alanine Aminotransferase (ALT/SGPT) 25 U/L (14-59) Alkaline Phosphatase 118 U/L (46-116) Troponin I High Sensitivity 75 ng/L (4-50) 110 ng/L (4-50) OV-Bpm-Z-Type Natriuretic Peptide 657 pg/mL (0-124) Total Protein 8.0 g/dL (6.4-8.2) Albumin 3.5 g/dL (3.4-5.0) Albumin/Globulin Ratio 0.8 (1.0-1.7) Thyroid Stimulating Hormone (TSH) 0.457 uIU/mL (0.358-3.74) Ethyl Alcohol Level < 10 mg/dL (0-10) Prothrombin Time 15.0 SEC (11.7-14.0) Prothromb Time International Ratio 1.2 (0.8-1.1) Activated Partial Thromboplast Time 30 SEC (24-38) Urine Collection Type Unknown Urine Color (Auto) Colorless Urine Turbidity Clear Urine pH (Auto) 5.0 (<5.0-8.0) Urine Specific [place] 1.010 (1.000-1.030) Urine Protein (Auto) Negative mg/dL (Negative) Urine Glucose (Auto)(UA) Negative mg/dL (Negative) Urine Ketones (Auto) Negative mg/dL (Negative) Urine Blood (Auto) Negative (Negative) Urine Nitrite Negative (Negative) Urine Bilirubin (Auto) Negative (Negative) Urine Urobilinogen (Auto) Normal mg/dL (Normal) Urine Leukocyte Esterase (Auto) Negative (Negative) Urine RBC 0 /HPF (0-2) Urine WBC 1-4 /HPF (0-4) Urine Squamous Epithelial Cells Mod /LPF Urine Bacteria 0 /HPF (0-FEW) Urine Opiates Screen Neg (NEG) Urine Methadone Screen Neg (NEG) Urine Barbiturates Neg (NEG) Urine Phencyclidine Screen Pos (NEG) Urine Amphetamine/Methamphetamine Neg (NEG) Urine Benzodiazepines Screen Neg (NEG) Urine Cocaine Screen Neg (NEG) Urine Cannabinoids Screen Pos (NEG) Urine Ethyl Alcohol Neg (NEG) VTE Prophylaxis Ordered VTE Prophylaxis Devices: No VTE Pharmacological Prophylaxi: Yes Assessment/Plan Assessment/Plan acute diastolic CHF atrial fibrillation with RVR, amio gtt, failure of outpatient meds, has seen [facility], is getting [facility] for ablation, has seen EP anxiety and depression, benzo use, requested ativan, was given in ER, and she slept hard chronic back pain and opioid use and tolerance, home meds tobacco use disorder THC use, poss other use, could be OTC cough meds , robitussim DM could cause false pos PCP test, CKD 3 or 4 Justifications for Admission Other Justification NICOLASA HAYDEN MD Jan 31, 2022 21:45
[2022-01-31] MEDS: traZODone 50 MG TABLET. PO SCH (22:00)
[2022-01-31] MEDS: ATORVASTATIN CALCIUM 40 MG TABLET. PO SCH (22:02)
[2022-01-31] MEDS: HYDROcodone/APAP 7.5/325MG 1 TAB TABLET PO PRN (22:02)
[2022-01-31] MEDS: APIXABAN 5 MG TABLET. PO SCH (22:05)
[2022-01-31] MEDS: GABAPENTIN 300 MG CAPSULE. PO SCH (22:26)
[2022-01-31] MEDS: tiZANidine 4 MG TABLET. PO SCH (22:26)
[2022-01-31 22:49] VITALS: BP 132/88
[2022-02-01] VITALS (7 sets, daily range): BP systolic 83–154; BP diastolic 62–96
[2022-02-01] MEDS: AMIODARONE 450 MG in IV DEXTROSE 5% 250 ML IV PRN (04:17)
[2022-02-01] MEDS ORDERED: NON FORMULARY ITEM (Carvedilol (Coreg) 25 MG) PO SCH (08:00)
[2022-02-01] MEDS: ATORVASTATIN CALCIUM 40 MG TABLET. PO SCH (08:14)
[2022-02-01] MEDS: buPROPion XL 150 MG TAB.ER.24H. PO SCH ×2 (08:14→20:58)
[2022-02-01] MEDS: tiZANidine 4 MG TABLET. PO SCH ×2 (08:14→20:57)
[2022-02-01] MEDS: SPIRONOLACTONE 25 MG TABLET PO SCH (08:15)
[2022-02-01] MEDS: APIXABAN 5 MG TABLET. PO SCH ×2 (08:15→20:56)
[2022-02-01] MEDS: CETIRIZINE HCL 10 MG TABLET. PO SCH (08:15)
[2022-02-01] MEDS: GABAPENTIN 300 MG CAPSULE. PO SCH ×2 (08:15→20:56)
[2022-02-01] MEDS: MONTELUKAST SODIUM 10 MG TABLET. PO SCH (08:16)
[2022-02-01] MEDS: CITALOPRAM 20 MG TABLET. PO SCH (08:16)
[2022-02-01] MEDS: CARVEDILOL 12.5 MG TABLET. PO SCH ×2 (08:16→18:52)
[2022-02-01] MEDS: CLOTRIMAZOLE 1% TOPICAL CREAM 14GM TUBE. TP SCH ×2 (08:18→21:00)
[2022-02-01] MEDS: HYDROcodone/APAP 7.5/325MG 1 TAB TABLET PO PRN ×2 (08:23→20:56)
[2022-02-01] MEDS: TERBINAFINE 250 MG TABLET. PO SCH (08:57)
[2022-02-01] MEDS ORDERED: APIXABAN 5 MG TABLET. PO SCH (09:00)
[2022-02-01] MEDS ORDERED: LISINOPRIL 20 MG TABLET PO SCH (09:00)
--- NOTE | 2022-02-01 13:38 | PDOC3 ---
Discharge Summary Visit Information Date of Admission: Jan 31, 2022 Date of Discharge: Feb 01, 2022 Final Diagnosis acute diastolic CHF atrial fibrillation with RVR, amio gtt, transition to PO, f/u [facility] EP, has been referred before anxiety and depression, benzo prescribed to control on outpatinet chronic back pain and opioid use and tolerance, home meds tobacco use disorder THC use, PCP pos from others using in the house, she denies CKD 3 Problems Medical Problems: (1) Atrial fibrillation with RVR Status: Acute (2) Chest pain Status: Acute (3) Marijuana use Status: Acute (4) Phencyclidine (PCP) use disorder, mild, abuse Status: Acute (5) Renal insufficiency Status: Acute Brief Hospital Course Allergies Allergies Coded Allergies Type Severity Reaction Last Updated Verified No Known Drug Allergies 07/20/18 No Vital Signs Vital Signs Date Time Temp Pulse Resp B/P (MAP) Pulse Ox O2 Delivery O2 Flow Rate FiO2 02/01/22 11:00 96.6 81 20 154/96 (115) 91 Room Air 96.6 Lab Results Laboratory Tests Test 01/31/22 10:40 01/31/22 11:05 01/31/22 12:36 01/31/22 15:32 White Blood Count 8.0 x10^3/uL (4.0-11.0) Red Blood Count 3.59 x10^6/uL (3.50-5.40) Hemoglobin 12.0 g/dL (12.0-15.5) Hematocrit 35.8 % (36.0-47.0) Mean Corpuscular Volume 100 fL (79-100) Mean Corpuscular Hemoglobin 33 pg (25-35) Mean Corpuscular Hemoglobin Concent 33 g/dL (31-37) Red Cell Distribution Width 13.9 % (11.5-14.5) Platelet Count 316 x10^3/uL (140-400) Neutrophils (%) (Auto) 67 % (31-73) Lymphocytes (%) (Auto) 25 % (24-48) Monocytes (%) (Auto) 6 % (0-9) Eosinophils (%) (Auto) 2 % (0-3) Basophils (%) (Auto) 1 % (0-3) Neutrophils # (Auto) 5.3 x10^3/uL (1.8-7.7) Lymphocytes # (Auto) 2.0 x10^3/uL (1.0-4.8) Monocytes # (Auto) 0.5 x10^3/uL (0.0-1.1) Eosinophils # (Auto) 0.1 x10^3/uL (0.0-0.7) Basophils # (Auto) 0.1 x10^3/uL (0.0-0.2) Sodium Level 143 mmol/L (136-145) Potassium Level 3.5 mmol/L (3.5-5.1) Chloride Level 106 mmol/L (98-107) Carbon Dioxide Level 25 mmol/L (21-32) Anion Gap 12 (6-14) Blood Urea Nitrogen 34 mg/dL (7-20) Creatinine 2.1 mg/dL (0.6-1.0) Estimated GFR (Cockcroft-Gault) 29.9 BUN/Creatinine Ratio 16 (6-20) Glucose Level 112 mg/dL (70-99) Calcium Level 9.5 mg/dL (8.5-10.1) Total Bilirubin 0.4 mg/dL (0.2-1.0) Aspartate Amino Transf (AST/SGOT) 20 U/L (15-37) Alanine Aminotransferase (ALT/SGPT) 25 U/L (14-59) Alkaline Phosphatase 118 U/L (46-116) Troponin I High Sensitivity 75 ng/L (4-50) 110 ng/L (4-50) WW-Okj-Y-Type Natriuretic Peptide 657 pg/mL (0-124) Total Protein 8.0 g/dL (6.4-8.2) Albumin 3.5 g/dL (3.4-5.0) Albumin/Globulin Ratio 0.8 (1.0-1.7) Thyroid Stimulating Hormone (TSH) 0.457 uIU/mL (0.358-3.74) Ethyl Alcohol Level < 10 mg/dL (0-10) Prothrombin Time 15.0 SEC (11.7-14.0) Prothromb Time International Ratio 1.2 (0.8-1.1) Activated Partial Thromboplast Time 30 SEC (24-38) Urine Collection Type Unknown Urine Color (Auto) Colorless Urine Turbidity Clear Urine pH (Auto) 5.0 (<5.0-8.0) Urine Specific [place] 1.010 (1.000-1.030) Urine Protein (Auto) Negative mg/dL (Negative) Urine Glucose (Auto)(UA) Negative mg/dL (Negative) Urine Ketones (Auto) Negative mg/dL (Negative) Urine Blood (Auto) Negative (Negative) Urine Nitrite Negative (Negative) Urine Bilirubin (Auto) Negative (Negative) Urine Urobilinogen (Auto) Normal mg/dL (Normal) Urine Leukocyte Esterase (Auto) Negative (Negative) Urine RBC 0 /HPF (0-2) Urine WBC 1-4 /HPF (0-4) Urine Squamous Epithelial Cells Mod /LPF Urine Bacteria 0 /HPF (0-FEW) Urine Opiates Screen Neg (NEG) Urine Methadone Screen Neg (NEG) Urine Barbiturates Neg (NEG) Urine Phencyclidine Screen Pos (NEG) Urine Amphetamine/Methamphetamine Neg (NEG) Urine Benzodiazepines Screen Neg (NEG) Urine Cocaine Screen Neg (NEG) Urine Cannabinoids Screen Pos (NEG) Urine Ethyl Alcohol Neg (NEG) Laboratory Tests Test 01/31/22 15:32 Troponin I High Sensitivity 110 ng/L (4-50) Brief Hospital Course Ms. Sabillon is a 51 oldadmi twith AFIB RVR, started on AMIO, s/p gtt, good control, rate 80 range consistently f/u [facility] Discharge Information Condition at Discharge: Improved Follow Up: Weeks Disposition/Orders: D/C to Home Scheduled Amiodarone Hcl (Amiodarone Hcl) 200 Mg Tablet, 1 TAB PO BID for cardiac rhythm, #14 Prescribed by: NICOLASA HAYDEN on 02/01/22 1342 Amiodarone Hcl (Amiodarone Hcl) 200 Mg Tablet, 1 TAB PO DAILY for atrial fibrillation, #30 Ref 1 to start after the one week of BID dosing Prescribed by: NICOLASA HAYDEN on 02/01/22 1342 Apixaban (Eliquis) 5 Mg Tablet, 5 MG PO BID for anticoagulant, (Reported) Entered as Reported by: DESMOND DOWNS on 01/31/222119 Last Action: Continued on 01/31/222125 by NICOLASA HAYDEN Atorvastatin Calcium (Atorvastatin Calcium) 20 Mg Tablet, 20 MG PO HS for FOR CHOLESTEROL, #30 Ref 0 (Reported) Entered as Reported by: DESMNOD DOWNS on 01/31/222119 Last Action: Continued on 01/31/222125 by NICOLASA HAYDEN Bupropion Hcl (Bupropion Xl) 150 Mg Tab.er.24h, 1 TAB PO BID for anxiety, #30 Ref 2 (Reported) Entered as Reported by: DESMOND DOWNS on 01/31/222119 Last Action: Continued on 01/31/222125 by NICOLASA HAYDEN Carvedilol (Coreg) 25 Mg Tablet, 25 MG PO BIDWMEALS for CARDIAC, (Reported) Entered as Reported by: DESMOND DOWNS on 01/31/222119 Last Action: Converted on 01/31/222125 by NICOLASA HAYDEN Cetirizine Hcl (Cetirizine Hcl) 10 Mg Tablet, 1 TAB PO DAILY for allergies, #30 Ref 5 (Reported) Entered as Reported by: DESMOND DOWNS on 01/31/222119 Last Action: Continued on 01/31/222125 by NICOLASA HAYDEN Clotrimazole (Clotrimazole) 15 Gm Cream..g., 1 HU[place] TP BID for athlete's foot, #15 (Reported) Entered as Reported by: DESMOND DOWNS on 01/31/222119 Last Action: Continued on 01/31/222125 by NICOLASA HAYDEN Escitalopram Oxalate (Escitalopram Oxalate) 10 Mg Tablet, 1 TAB PO DAILY for d epression, #30 Ref 3 (Reported) Entered as Reported by: DESMOND DOWNS on 01/31/222119 Last Action: Converted on 01/31/222125 by NICOLASA HAYDEN Folic Acid (Folic Acid) 0.8 Mg Tablet, 1 MG PO DAILY for SUPPLEMENT, (Reported) Entered as Reported by: DESMOND DOWNS on 01/31/222119 Last Action: New Order on 01/31/222119 by DESMOND DOWNS Gabapentin (Gabapentin ) 300 Mg Capsule, 300 MG PO TID for NEUROGENIC PAIN, (Reported) Entered as Reported by: DESMOND DOWNS on 01/31/222119 Last Action: Continued on 01/31/222125 by NICOLASA HAYDEN Lisinopril (Lisinopril) 20 Mg Tablet, 1 TAB PO DAILY for hypertension, #30 Ref 5 (Reported) Entered as Reported by: DESMOND DOWNS on 01/31/222119 Last Action: Continued on 01/31/222125 by NICOLASA HAYDEN Montelukast Sodium (Singulair Tablet ) 10 Mg Tablet, 10 MG PO DAILY for FOR ASTHMA, Ref 0 (Reported) Entered as Reported by: DESMOND DOWNS on 01/31/222119 Last Action: Continued on 01/31/222125 by NICOLASA HAYDEN Spironolactone (Spironolactone) 25 Mg Tablet, 1 TAB PO DAILY for hypertension, #90 Ref 1 (Reported) Entered as Reported by: DESMOND DOWNS on 01/31/222119 Last Action: Continued on 01/31/222125 by NICOLASA HAYDEN Terbinafine Hcl (Terbinafine Hcl) 250 Mg Tablet, 250 MG PO DAILY for antifungal, (Reported) Entered as Reported by: DESMOND DOWNS on 01/31/222104 Last Action: Continued on 01/31/222125 by NICOLASA HAYDEN Tizanidine Hcl (Tizanidine Hcl) 4 Mg Tablet, 4 MG PO BID for muscle , (Reported) Entered as Reported by: DESMOND DOWNS on 01/31/222107 Last Action: Continued on 01/31/222125 by NICOLASA HAYDEN Trazodone Hcl (Trazodone Hcl) 50 Mg Tablet, 50 MG PO DAILY for sleep, (Reported) Entered as Reported by: DESMOND DOWNS on 01/31/222119 Last Action: Continued on 01/31/222125 by NICOLASA HAYDEN Scheduled PRN Alprazolam (Alprazolam) 0.25 Mg Tablet, 0.25 MG PO PRN Q6HRS PRN for ANXIETY / AGITATION, Ref 0 (Reported) Entered as Reported by: DESMOND DOWNS on 01/31/222119 Last Action: Continued on 01/31/222125 by NICOLASA HAYDEN Fluticasone Propionate (Allergy Relief) 15.8 Ml [place].susp, 2 SPRAY NS BID PRN for ALLERGIES for 30 Days, Ref 0 (Reported) Entered as Reported by: DESMOND DOWNS on 01/31/222119 Last Action: New Order on 01/31/222119 by DESMOND DOWNS Furosemide (Furosemide) 40 Mg Tablet, 40 MG PO DAILY PRN for swelling, (Reported) Entered as Reported by: DESMOND DOWNS on 01/31/222119 Last Action: Continued on 01/31/222125 by NICOLASA HAYDEN Hydrocodone Bit/Acetaminophen (Hydrocodone-Apap 7.5-325 ) 1 Tab Tablet, 1 TAB PO Q12HR PRN for PAIN, Ref 0 (Reported) Entered as Reported by: DESMOND DOWNS on 01/31/222119 Last Action: Continued on 01/31/222125 by NICOLASA HAYDEN Miscellaneous Medications Info (Unable To Obtain Meds From Prior To Admit) Each, 1 EACH , (Reported) Entered as Reported by: ANA PORTILLO on 07/20/182044 Justicifation of Admission Dx: Justifications for Admission: Justification of Admission Dx: Yes (AFIB RVR) NICOLASA HAYDEN MD Feb 01, 2022 13:38
--- NOTE | 2022-02-01 13:40 | PDOC ---
ROQUE KRUGER VARNISH MIXER 02/01/22 1340: CARDIO Progress Notes Date and Time Date of Service 02/01/2022 Time of Evaluation 1310 Subjective Subjective: No Chest Pain, No shortness of breath, No Palpitations Vitals Vitals Vital Signs Date Time Temp Pulse Resp B/P (MAP) Pulse Ox O2 Delivery O2 Flow Rate FiO2 02/01/22 11:00 96.6 81 20 154/96 (115) 91 Room Air 96.6 Weight Weight [ ] Input and Output Intake and Output Intake and Output 02/01/22 07:00 Intake Total 893 ml Output Total 200 ml Balance 693 ml Intake Oral 600 ml IV Total 293 ml Output Urine Total 200 ml Laboratory Labs Laboratory Tests Test 01/31/22 15:32 Troponin I High Sensitivity 110 ng/L (4-50) Physical Exam HEENT: Neck Supple W Full Motion Chest: Symmetric LUNGS: Clear to Auscultation Heart: irregularly irregular (AFIB) Abdomen: Soft N/T Extremities: No Edema, No Calf Tenderness Neurology: alert, oriented, follow commands Assessment Assessment 1. AFIB RVR: Now rate controlled 2. Chest pain: likely from RVR 3. Acute on chronic diastolic CHF with known severe LVH 4. HTN: better 5. HLP 6. Tobaccoism 7. FIORELLA on CKD3: Baseline Cr at 1.6 prerenal diarrhea this am per PCP 8. Positive for PCP and marijuana 9. RENETTA: no device yet 10. Mild troponin elevation: suspect demand mediated due to RVR and FIORELLA Recommendations 1. Amiodarone IV protocol received. PO 200 mg bid x1 week then daily Continue eliquis for stroke prevention 2. Restart home coreg. If CrCl remains high then consider stopping aldactoneConsider cardizem if rate remains uncontrolled 3. Lifestyle modification 4. Outpt MPI, MCOT 5. Follow up with [facility] 6. May DC this afternoon. If no conversion then would consider for outpt CVN and EP referral Justicifation of Admission Dx: Justifications for Admission: Justification of Admission Dx: Yes CLAUDE GONZALEZ MD 02/01/22 9682: CARDIO Progress Notes Assessment Assessment Patient seen and examined. Agree with ENAMEL BURNER's assessment and plan AF with RVR despite holding lopressor and digoxin Agree with amiodarone gtt per protocol If she continues to have RVR, we will consider deon Cvn Acute on HF diastoic HF better compensated Slight trop elevation prob demand ischemia ROQUE KRUGER VARNISH MIXER Feb 01, 2022 13:40 CLAUDE GONZALEZ MD Feb 01, 2022 22:52
[2022-02-01] MEDS ORDERED: AMIO200T53 PO ×2 (13:42)
[2022-02-01 15:15] LABS: CALCIUM 8.9 mg/dL (8.5-10.1); CREATININE 2.5 mg/dL (0.6-1.0); GFR 24.5; MAGNESIUM 1.7 mg/dL (1.8-2.4); POTASSIUM 4.1 mmol/L (3.5-5.1)
[2022-02-01] MEDS ORDERED: IV NORMAL SALINE 1000ML BAG 1,000 ML IV ONE (15:30)
--- NOTE | 2022-02-01 16:39 | NUR ---
SS following for discharge planning. SS reviewed pt chart and discussed with pt RN. Pt is from home and is currently on room air. Discharge order on the chart for home with self care.
--- NOTE | 2022-02-01 16:51 | NUR ---
Patient hypotensive at 83/62, 1000cc fluid bolus administered. BP better at 100/76.
--- NOTE | 2022-02-01 17:38 | NUR ---
Since amiodarone was held for NS bolus, new amiodarone gtt started to run just the leftover amount needed for the 24hours.
[2022-02-01] MEDS: AMIODARONE HCL 200 MG TABLET. PO SCH (20:58)
[2022-02-01] MEDS: traZODone 50 MG TABLET. PO SCH (20:58)
[2022-02-01] MEDS ORDERED: ATORVASTATIN CALCIUM 20 MG TABLET PO SCH (21:00)
[2022-02-02 02:50] VITALS: BP 126/83
[2022-02-02 07:00] VITALS: BP 140/89
--- NOTE | 2022-02-02 07:22 | PDOC ---
PROGRESS NOTES Date of Service: DATE: 02/02/22 TIME: 07:22 Objective Objective Vital Signs Date Time Temp Pulse Resp B/P (MAP) Pulse Ox O2 Delivery O2 Flow Rate FiO2 02/02/22 02:50 98.5 72 19 126/83 (97) 95 Room Air 98.5 Intake and Output 02/02/22 07:00 Intake Total 940 ml Balance 940 ml Intake Oral 940 ml # Voids 1 Physical Exam Abdomen: Soft, No tenderness Heart: Other (AFIB RVR; 2/6 systolic murmur to LLS border) Extremities: No cyanosis, No edema, Other (left upper calf bruise, ) General: Alert, Oriented X3, mild distress HEENT: Atraumatic Lungs: Clear to auscultation, Normal air movement MUSCULOSKELETAL: Osteoarthritic changes both hands Neuro: Normal speech, Normal tone, Cranial nerves 3-12 NL Psych/Mental Status: Mental status NL Skin: No rashes, No significant lesion Assessment Assessment Problems Medical Problems: (1) Atrial fibrillation with RVR Status: Acute (2) Chest pain Status: Acute (3) Marijuana use Status: Acute (4) Phencyclidine (PCP) use disorder, mild, abuse Status: Acute (5) Renal insufficiency Status: Acute Plan Plan of Care Problems Medical Problems: (1) Atrial fibrillation with RVR Status: Acute (2) Chest pain Status: Acute (3) Marijuana use Status: Acute (4) Phencyclidine (PCP) use disorder, mild, abuse Status: Acute (5) Renal insufficiency Status: Acute Comment Review of Relevant I have reviewed the following items dusty (where applicable) has been applied. Labs Laboratory Tests Test 02/01/22 14:41 Sodium Level 142 mmol/L (136-145) Potassium Level 4.1 mmol/L (3.5-5.1) Chloride Level 107 mmol/L (98-107) Carbon Dioxide Level 23 mmol/L (21-32) Anion Gap 12 (6-14) Blood Urea Nitrogen 41 mg/dL (7-20) Creatinine 2.5 mg/dL (0.6-1.0) Estimated GFR (Cockcroft-Gault) 24.5 Glucose Level 121 mg/dL (70-99) Calcium Level 8.9 mg/dL (8.5-10.1) Magnesium Level 1.7 mg/dL (1.8-2.4) Medications Current Medications Amiodarone HCl (Cordarone) 200 mg BID PO Last administered on 02/01/22at 20:58; Start 02/01/22 at 21:00 Apixaban (Eliquis) 5 mg BID PO ; Start 02/01/22 at 09:00; Status UNV Atorvastatin Calcium (Lipitor) 20 mg HS PO ; Start 02/01/22 at 21:00; Status UNV Bupropion HCl (Wellbutrin Xl) 150 mg BID PO Last administered on 02/01/22at 20:58; Start 02/01/22 at 09:00 Cetirizine HCl (ZyrTEC) 10 mg DAILY PO Last administered on 02/01/22at 08:15; Start 02/01/22 at 09:00 Citalopram Hydrobromide (CeleXA) 20 mg DAILY PO Last administered on 02/01/22 08:16; Start 02/01/22 at 09:00 Clotrimazole (Lotrimin) 1 yazmin BID TP Last administered on 02/01/22at 21:00; Start 02/01/22 at 09:00 Lisinopril (Prinivil) 5 mg DAILY PO ; Start 02/02/22 at 09:00 Lisinopril (Prinivil) 20 mg DAILY PO Last administered on 02/01/22at 08:15; Start 02/01/22 at 09:00; Stop 02/01/22 at 15:23; Status DC Montelukast Sodium (Singulair) 10 mg DAILY PO Last administered on 02/01/22at 08:16; Start 02/01/22 at 09:00 Non-Formulary Medication (Carvedilol (Coreg)) 25 mg BIDWMEALS PO ; Start 02/01/22 at 08:00; Status UNV Sodium Chloride 1,000 ml @ 1,000 mls/hr 1X ONCE IV Last administered on 02/01/22at 15:32; Start 02/01/22 at 15:30; Stop 02/01/22 at 16:29; Status DC Spironolactone (Aldactone) 25 mg DAILY PO Last administered on 02/01/22at 08:15; Start 02/01/22 at 09:00 Terbinafine HCl (LamISIL) 250 mg DAILY PO Last administered on 4/8/22at 08:57; Start 02/01/22 at 09:00 Vitals/I & O Vital Sign - Last 24 Hours 02/01/22 02/01/22 02/01/22 02/01/22 08:00 08:15 08:16 08:23 Pulse 71 71 B/P (MAP) 154/96 154/96 O2 Delivery Room Air Room Air 02/01/22 02/01/22 02/01/22 02/01/22 08:53 11:00 15:00 16:45 Temp 96.6 97.8 96.6 97.8 Pulse 81 75 Resp 20 20 B/P (MAP) 154/96 (115) 83/62 (69) 100/76 (84) Pulse Ox 91 93 O2 Delivery Room Air Room Air Room Air 02/01/22 02/01/22 02/01/22 02/01/22 18:52 19:00 20:15 20:56 Temp 98.0 98.0 Pulse 75 80 Resp 19 B/P (MAP) 100/76 120/79 (93) Pulse Ox 96 O2 Delivery Room Air Room Air Room Air 02/01/22 02/01/22 02/01/22 02/02/22 20:58 21:26 22:17 02:50 Temp 98.2 98.5 98.2 98.5 Pulse 90 67 72 Resp 19 19 B/P (MAP) 119/91 133/84 (100) 126/83 (97) Pulse Ox 96 95 O2 Delivery Room Air Room Air Room Air Intake and Output 02/01/22 02/01/22 02/02/22 15:00 23:00 07:00 Intake Total 240 ml 700 ml 0 ml Balance 240 ml 700 ml 0 ml CLAUDE GONZALEZ MD Feb 02, 2022 07:22
[2022-02-02 08:44] VITALS: BP 126/83
[2022-02-02] MEDS: CITALOPRAM 20 MG TABLET. PO SCH (08:44)
[2022-02-02] MEDS: MONTELUKAST SODIUM 10 MG TABLET. PO SCH (08:44)
[2022-02-02] MEDS: tiZANidine 4 MG TABLET. PO SCH (08:44)
[2022-02-02] MEDS: GABAPENTIN 300 MG CAPSULE. PO SCH (08:44)
[2022-02-02] MEDS: CARVEDILOL 12.5 MG TABLET. PO SCH (08:44)
[2022-02-02] MEDS: AMIODARONE HCL 200 MG TABLET. PO SCH (08:44)
[2022-02-02] MEDS: ATORVASTATIN CALCIUM 40 MG TABLET. PO SCH (08:45)
[2022-02-02] MEDS: CETIRIZINE HCL 10 MG TABLET. PO SCH (08:45)
[2022-02-02] MEDS: APIXABAN 5 MG TABLET. PO SCH (08:45)
[2022-02-02] MEDS: buPROPion XL 150 MG TAB.ER.24H. PO SCH (08:45)
[2022-02-02] MEDS: TERBINAFINE 250 MG TABLET. PO SCH (08:45)
[2022-02-02] MEDS: SPIRONOLACTONE 25 MG TABLET PO SCH (08:45)
[2022-02-02] MEDS: HYDROcodone/APAP 7.5/325MG 1 TAB TABLET PO PRN (08:52)
[2022-02-02] MEDS ORDERED: LISINOPRIL 5 MG TABLET. PO SCH (09:00)
--- NOTE | 2022-02-02 10:23 | NUR ---
DISCHARGED PATIENT TO HOME. DISCHARGE INSTRUCTIONS GIVEN. PIV AND HEART MONITOR REMOVED. ESCORTED PATIENT OFF UNIT PER WHEELCHAIR INTO A PRIVATE VEHICLE.
--- NOTE | 2022-02-02 12:59 | PDOC ---
[employer] PROGRESS NOTE Date of Service DOS: DATE: 02/02/22 TIME: 12:58 Chief Complaint Chief Complaint LATE ENTRY, pt seen 02/01, tried to DC plan made, had to review again on 02/02, kept due to hypotension transient and Amio bag not done and Amio script not at pharmacy or something acute diastolic CHF atrial fibrillation with RVR, amio gtt, transition to PO, f/u [facility] EP, has been referred before anxiety and depression, benzo prescribed to control on outpatinet chronic back pain and opioid use and tolerance, home meds tobacco use disorder THC use, PCP pos from others using in the house, she denies CKD 3 Vitals/I&O Vitals/I&O: Vital Signs Date Time Temp Pulse Resp B/P (MAP) Pulse Ox O2 Delivery O2 Flow Rate FiO2 02/02/22 08:52 18 100 Room Air 02/02/22 08:44 72 126/83 02/02/22 07:00 98.4 98.4 I & O 02/01/22 02/01/22 02/02/22 15:00 23:00 07:00 Intake Total 240 ml 700 ml 0 ml Balance 240 ml 700 ml 0 ml Physical Exam General: Alert, Oriented X3, mild distress Heart: Other (AFIB RVR; 2/6 systolic murmur to LLS border) Abdomen: Soft, No tenderness Extremities: No cyanosis, No edema, Other (left upper calf bruise, ) Skin: No rashes, No significant lesion Labs Labs: Laboratory Tests Test 02/01/22 14:41 Sodium Level 142 mmol/L (136-145) Potassium Level 4.1 mmol/L (3.5-5.1) Chloride Level 107 mmol/L (98-107) Carbon Dioxide Level 23 mmol/L (21-32) Anion Gap 12 (6-14) Blood Urea Nitrogen 41 mg/dL (7-20) Creatinine 2.5 mg/dL (0.6-1.0) Estimated GFR (Cockcroft-Gault) 24.5 Glucose Level 121 mg/dL (70-99) Calcium Level 8.9 mg/dL (8.5-10.1) Magnesium Level 1.7 mg/dL (1.8-2.4) Assessment and Plan Assessmemt and Plan Problems Medical Problems: (1) Atrial fibrillation with RVR Status: Acute (2) Chest pain Status: Acute (3) Marijuana use Status: Acute (4) Phencyclidine (PCP) use disorder, mild, abuse Status: Acute (5) Renal insufficiency Status: Acute Comment Review of Relevant I have reviewed the following items dusty (where applicable) has been applied. Medications: Current Medications Medications (Trade) Dose Ordered Sig/Erinn Route PRN Reason Start Time Stop Time Status Last Admin Dose Admin Lisinopril (Prinivil) 5 mg DAILY PO 02/02/22 09:00 02/02/22 11:09 DC 02/02/22 08:44 Sodium Chloride 1,000 ml @ 1,000 mls/hr 1X ONCE IV 02/01/22 15:30 02/01/22 16:29 DC 02/01/22 15:32 Amiodarone HCl (Cordarone) 200 mg BID PO 02/01/22 21:00 02/02/22 11:09 DC 02/02/22 08:44 Justifications for Admission Other Justification NICOLASA HAYDEN MD Feb 02, 2022 12:59
== END 2022-02-02 10:30 | disposition home or self-care (01) | DRG 308 ==
LOC: ER 10:26 → 6 SOUTH 14:00 → ER 20:00
PROVIDERS: ADMIT Internal Medicine; ATTEND Internal Medicine
DX: I48.0 Paroxysmal atrial fibrillation (principal); I50.33 Acute on chronic diastolic (congestive) heart failure; I13.0 Hypertensive heart and chronic kidney disease with heart failure and stage 1 through stage 4 chronic kidney disease, or unspecified chronic kidney disease; N17.9 Acute kidney failure, unspecified; E78.5 Hyperlipidemia, unspecified; F16.10 Hallucinogen abuse, uncomplicated; F17.210 Nicotine dependence, cigarettes, uncomplicated; F32.A Depression, unspecified; F41.9 Anxiety disorder, unspecified; G47.33 Obstructive sleep apnea (adult) (pediatric); G89.29 Other chronic pain; N18.30 Chronic kidney disease, stage 3 unspecified; M19.90 Unspecified osteoarthritis, unspecified site; M54.50 Low back pain, unspecified; Z79.01 Long term (current) use of anticoagulants
CPT/HCPCS: 36415; 71045; 80048; 80053; 80307; 81001; 83735; 83880; 84443; 84484; 85025; 85610; 85730; 93005; 96374; 96375; 96376; G0480; J0282; J1160; J2060; J2405; J3490; J7030; J7060; 99291-25; G0378